=== PATIENT | female | born 1995 ===

== ENCOUNTER 2018-07-21 18:59 | Emergency (ER) | payer SELFPAY ==
--- NOTE | 2018-07-21 19:47 | UC ---
Throat Pain/Nasal Adolfo HPI - HPI Summary HPI Summary: 22-year-old male comes in with a chief complaint of mouth pain. 3 days ago he burned his mouth on some hot food. Pain was improving but then it came back and it's been worse. He's been having ulcerated lesions in his mouth. Each with an ulcerated area of 2-3 mm in diameter surrounded by some swelling and erythema. He has no ulcerations on his lips. No prior history of herpes. He has had canker sores as a child. Otherwise feels well no fevers no chills. Eating makes the pain worse not eating decreases the pain. - History of Current Complaint Chief Complaint: UCSkin Stated Complaint: MOUTH COMPLAINT Time Seen by Provider: 07/21/18 19:18 Pain Intensity: 3 - Allergies/Home Medications Allergies/Adverse Reactions: Allergies Allergy/AdvReac Type Severity Reaction Status Date / Time No Known Allergies Allergy Verified 07/21/18 19:31 Home Medications: Home Medications FLUoxetine* [PROzac*] 20 mg PO DAILY 07/21/18 [History Confirmed 07/21/18] PMH/Surg Hx/FS Hx/Imm Hx Previously Healthy: Yes - Surgical History Surgical History: Yes Surgery Procedure, Year, and Place: D&C - Family History Known Family History: Positive: Non-Contributory - Social History Alcohol Use: Weekly Substance Use Type: Marijuana Substance Use Comment - Amount & Last Used: daily Smoking Status (MU): Current Some Day Smoker Type: eCigarettes Review of Systems All Other Systems Reviewed And Are Negative: Yes Constitutional: Positive: Negative Skin: Positive: Negative Eyes: Positive: Negative ENT: Positive: Other - SEE HPI Respiratory: Positive: Negative Cardiovascular: Positive: Negative Gastrointestinal: Positive: Negative Motor: Positive: Negative Neurovascular: Positive: Negative Musculoskeletal: Positive: Negative Neurological: Positive: Negative Psychological: Positive: Negative Is Patient Immunocompromised?: No Physical Exam Triage Information Reviewed: Yes Appearance: Well-Appearing, No Pain Distress, Well-Nourished Vital Signs: Initial Vital Signs Temp 98.2 F 07/21/18 19:26 Pulse 59 07/21/18 19:26 Resp 16 07/21/18 19:26 BP 97/54 07/21/18 19:26 Pulse Ox 99 07/21/18 19:26 Vital Signs Reviewed: Yes Eye Exam: Normal Eyes: Positive: Conjunctiva Clear ENT: Positive: Other - Several 2-3mm ulcerations on the palate and gums. No lesions on lips.. Negative: Tonsillar swelling, Tonsillar exudate Neck exam: Normal Neck: Positive: Supple Respiratory: Positive: No respiratory distress Musculoskeletal Exam: Normal Musculoskeletal: Positive: Strength Intact, ROM Intact Neurological Exam: Normal Neurological: Positive: Alert, Muscle Tone Normal Psychological Exam: Normal Psychological: Positive: Age Appropriate Behavior Skin Exam: Normal Throat Pain/Nasal Course/Dx - Differential Dx/Diagnosis Provider Diagnosis: Canker sores oral Discharge - Sign-Out/Discharge Documenting (check all that apply): Patient Departure All imaging exams completed and their final reports reviewed: No Studies - Discharge Plan Condition: Stable Disposition: HOME Prescriptions: Magic Mouth Was-BRIANNE/MAAL/LIDO* 5 ml SWISH SPIT QID PRN #120 ml PRN Reason: Pain Patient Education Materials: Canker Sores (ED) Referrals: [facility] [Outside] Additional Instructions: FOLLOW UP WITH YOUR DOCTOR IF NOT COMPLETELY IMPROVED. GET RECHECKED FOR ANY WORSENING OF YOUR CONDITION OR QUESTIONS OR CONCERNS. - Billing Disposition and Condition Condition: STABLE Disposition: Home
== END 2018-07-21 20:00 | disposition home or self-care (01) ==
LOC: UCEAST 18:59 → EDSEX 18:59 → UCEAST 20:00
DX: K12.0 Recurrent oral aphthae (principal); F17.290 Nicotine dependence, other tobacco product, uncomplicated
CPT/HCPCS: 99202; G0463